=== PATIENT | female | born 1950 | race Caucasian/White ===

== ENCOUNTER → 2016-07-25 | Outpatient (CLI) | payer OTHER ==
[~2016-07-25] MED LIST: ATEN25TA PO; ATOR10TA88 PO; DILT120C68 PO; DYZ PO; RIVA1TAB4 PO; TRIATAB3 PO
[2016-07-25 12:26] LABS: BASO % 0.4 %; BASO ABS # 0.03 K/uL (0-0.2); COMPLETE YES; HEMATOCRIT 40.4 % (37-47); IG% 0.3 %; LYMPH % 29.9 %; LYMPH ABS # 2.15 K/uL (1.2-3.4); MEAN CELL VOLUME 85.2 fL (80-100); MEAN CORPUSCULAR HEMOGLOBIN 28.7 pg (25-34); MEAN CORPUSCULAR HGB CONC 33.7 g/dl (32-36); MEAN PLATELET VOLUME 9.7 fL (7.4-10.4); MONO % 7.4 %; PLATELET COUNT 283 K/uL (130-400); RED BLOOD COUNT 4.74 M/uL (4.2-5.4)
[2016-07-25 12:44] LABS: ALT/SGPT 23 U/L (12-78); BLOOD UREA NITROGEN 21 mg/dl (7-18); BUN/CREATININE RATIO 22.9 (10-20); CALCIUM 9.7 mg/dl (8.5-10.1); CARBON DIOXIDE 30 mmol/L (21-32); CHLORIDE 100 mmol/L (98-107); CREATININE 0.91 mg/dl (0.60-1.20); GLUCOSE 87 mg/dl (70-99); POTASSIUM 3.4 mmol/L (3.5-5.1); SODIUM 138 mmol/L (136-145)
[2016-07-25 12:47] LABS: ALB/GLOB RATIO 1.2 (0.9-2); ALKALINE PHOSPHATASE 95 U/L (45-117); AST/SGOT 17 U/L (15-37)
== END | disposition home or self-care (01) ==
LOC: C.LABBFT 10:50
PROVIDERS: ATTEND Internal Medicine
DX: R10.32 Left lower quadrant pain (principal)

== ENCOUNTER 2016-11-02 23:41 | Emergency (ER) | payer OTHER ==
[~2016-11-02] VITALS: Ht 170.2 cm; Wt 80.1 kg
[~2016-11-02 23:41] MED LIST changes: +ATOR10TA82 PO; -ATOR10TA88 PO; -TRIATAB3 PO
[2016-11-02 23:54] VITALS: BP 154/69; PULSE 55; TEMP 36.7; O2SAT 94; Ht 170.2 cm; Wt 80.1 kg
[2016-11-03] MEDS ORDERED: TRIATAB3 PO (00:43)
--- NOTE | 2016-11-03 00:51 | EMERGENCY ROOM VISIT NOTE ---
History Report prepared by Scribe: Brayan Augustine Under the Supervision of: Dr. Patrick Wong D.O. First contact with patient: 23:59 Chief Complaint: SWELLING TO EXTREMITY Stated Complaint: ARM SWELLING History of Present Illness The patient is a 66 year old female who presents to the Emergency Room with complaints of worsening right arm swelling. She states that she noticed the swelling on her right forearm a few hours ago when she was going to bed. She denies any known trauma. The patient states that the area is sore to the touch. She is on Xarelto. Source of History: patient Onset: a few hours ago Position: arm (right forearm) Quality: other (swelling) Timing: worsening Review of Systems See HPI for pertinent positives and negatives. A total of six systems were reviewed and were otherwise negative. Past Medical & Surgical Medical Problems: (1) Left sided chest pain (2) No Known Active Medical Problems Family History FH: heart disease Social History Smoking Status: Never Smoker Alcohol Use: occasionally Drug Use: none Marital Status: in relationship Occupation Status: employed Current/Historical Medications Scheduled Atenolol (Tenormin), 25 MG PO BID Atorvastatin (Lipitor), 10 MG PO DAILY Diltiazem Hcl Ext Rel (Tiazac), 120 MG PO BID Rivaroxaban (Xarelto), 20 MG PO DAILY Triamterene/Hctz (Triamterene/Hctz 37.5-25MG), 1 TAB PO DAILY Allergies Coded Allergies: Iodinated Diagnostic Agents (Verified Allergy, Severe, HIVES, 11/03/16) Physical Exam Vital Signs Date Time Temp Pulse Resp B/P (MAP) Pulse Ox O2 Delivery O2 Flow Rate FiO2 11/02/16 23:54 36.7 55 18 154/69 94 Room Air Physical Exam GENERAL: Awake, alert, well-appearing, in no distress RUE: Freely movable ecchymotic lesion on the right forearm flexor compartment. NVI distally. No evidence of significant limb edema NEURO: Normal sensorium. No sensory or motor deficits noted. SKIN: No rash or jaundice noted. Medical Decision & Procedures ER Provider Diagnostic Interpretation: Two View Right Forearm X-ray interpreted by me: negative for fracture or mass. ED Course 0002: The patient was evaluated in room B12B. A complete history and physical exam was performed. 0052: I reevaluated the patient. Discussed results and discharge instructions: she verbalized understanding and agreement. The patient is ready for discharge. Medical Decision Differential diagnoses include but are not limited to; hematoma, cyst, and contusion. Patient on my examination is no evidence of DVT patient clearly has a freely mobile hematoma or cystic like structure in the distal right flexor compartment of the forearm. Patient's x-rays negative for fracture or mass as interpreted by me Impression Primary Impression: Hematoma Scribe Attestation The scribe's documentation has been prepared under my direction and personally reviewed by me in its entirety. I confirm that the note above accurately reflects all work, treatment, procedures, and medical decision making performed by me. Departure Information Dispostion Home / Self-Care Referrals Sonny Ford M.D. (PCP) Patient Instructions ED Hematoma, My [facility]
--- NOTE | 2016-11-03 07:08 | DIAGNOSTIC IMAGING REPORT ---
RIGHT FOREARM 2 VIEWS ROUTINE CLINICAL HISTORY: Lesion. No known trauma. COMPARISON: None FINDINGS: No acute fracture of the right radius or ulna is identified. There is no right elbow joint effusion. No osseous lesion is present. There is chondrocalcinosis within the TFCC and severe arthritis of the right first carpometacarpal joint. IMPRESSION: No acute fracture of the right radius or ulna. Electronically signed by: Manan Jennings M.D. 11/03/2016 7:06 AM Dictated Date/Time: 11/03/2016 7:04 AM
[2017-03-15] MEDS ORDERED: MISCCAP80 PO (09:18)
== END 2016-11-03 01:04 | disposition home or self-care (01) ==
LOC: C.EDB 23:42
DX: S50.11XA Contusion of right forearm, initial encounter (principal); X58.XXXA Exposure to other specified factors, initial encounter

== ENCOUNTER 2017-02-09 17:32 | Emergency (ER) | payer OTHER ==
[~2017-02-09] VITALS: Ht 170.2 cm; Wt 79.7 kg
[~2017-02-09 17:32] MED LIST changes: -ATOR10TA82 PO; +ATOR10TA88 PO; -DYZ PO; +TRIATAB3 PO
[2017-02-09 17:34] VITALS: TEMP 37.4; Ht 170.2 cm; Wt 79.7 kg
[2017-02-09 17:50] VITALS: O2SAT 98
--- NOTE | 2017-02-09 18:02 | DIAGNOSTIC IMAGING REPORT ---
CHEST ONE VIEW PORTABLE CLINICAL HISTORY: Atypical chest pain COMPARISON STUDY: 07/05/2015 FINDINGS: There are postsurgical changes of a midline sternotomy. The heart remains enlarged. There is stable prominence of central right pulmonary artery. There is no overt failure. There are no pleural effusions.[ IMPRESSION: Stable cardiomegaly. No acute findings. Electronically signed by: Edis Walton M.D. 02/09/2017 6:01 PM Dictated Date/Time: 02/09/2017 6:00 PM
[2017-02-09 18:05] LABS: BASO % 0.3 %; BASO ABS # 0.03 K/uL (0-0.2); COMPLETE YES; EOS % 2.2 %; HEMATOCRIT 39.6 % (37-47); IG% 0.3 %; LYMPH ABS # 2.07 K/uL (1.2-3.4); MEAN CORPUSCULAR HGB CONC 33.3 g/dl (32-36); MEAN PLATELET VOLUME 9.2 fL (7.4-10.4); MONO % 14.6 %; NEUT % 63.6 %; PLATELET COUNT 289 K/uL (130-400); RED BLOOD COUNT 4.55 M/uL (4.2-5.4); WHITE BLOOD COUNT 10.87 K/uL (4.8-10.8)
[2017-02-09 18:19] LABS: ALT/SGPT 23 U/L (12-78); AST/SGOT 9 U/L (15-37); BLOOD UREA NITROGEN 22 mg/dl (7-18); BUN/CREATININE RATIO 18.5 (10-20); CARBON DIOXIDE 29 mmol/L (21-32); CHLORIDE 105 mmol/L (98-107); GLUCOSE 105 mg/dl (70-99); POTASSIUM 3.8 mmol/L (3.5-5.1); SODIUM 139 mmol/L (136-145)
[2017-02-09 18:21] LABS: INR 1.1 (0.9-1.1); PARTIAL THROMBOPLASTIN RATIO 1.3; PROTHROMBIN TIME (PATIENT) 12.1 SECONDS (9.0-12.0)
[2017-02-09 18:24] LABS: ALKALINE PHOSPHATASE 92 U/L (45-117)
[2017-02-09 20:30] VITALS: BP 111/62; PULSE 59; O2SAT 96
--- NOTE | 2017-02-09 23:47 | EMERGENCY ROOM VISIT NOTE ---
History Report prepared by Neyda: Krystal Moran Under the Supervision of: Dr. Dashawn Camacho M.D. First contact with patient: 17:44 Chief Complaint: CHEST PAIN Stated Complaint: CHEST PAIN History of Present Illness The patient is a 66 year old female who presents to the Emergency Room with complaints of intermittent chest pain that began around 1400 today. She states she was sitting down when the pain started and describes it as feeling like a "deep twinge", rating her discomfort as a 7/10. Her pain is worse with ambulation and she states it lasts briefly, for about 5 seconds. The patient denies any recent travel or surgeries. She notes she has experienced similar pain in the past, with the last episode being in 2016. The patient does take daily Xarelto and admits to a history of atrial fibrillation and has undergone mitral and tricuspid valve repairs. She denies any current pain here in the ED. She admits she has been getting over cold symptoms recently and has also been more fatigued than normal. Pt denies LOC, headache, fevers, chills, diaphoresis , visual changes, neck pain, breathing difficulties, nausea, vomiting, abdominal pain, back pain, melena, hematochezia, urinary symptoms, numbness, weakness, lymphadenopathy, rash, or other complaints. Source of History: patient Onset: 1400 today Position: chest Symptom Intensity: 7/10 Quality: other ("deep twinge") Timing: intermittent Modifying Factors (Worsening): movement (ambulation) Associated Symptoms: + fatigue Review of Systems See HPI for pertinent positives and negatives. A total of ten systems were reviewed and were otherwise negative. Past Medical & Surgical Medical Problems: (1) Anticoagulant long-term use (2) Atrial fibrillation (3) Left sided chest pain Surgical Problems: (1) S/P appendectomy (2) S/P MVR (mitral valve repair) (3) S/P TVR (tricuspid valve repair) Family History FH: heart disease Social History Smoking Status: Never Smoker Alcohol Use: occasionally Drug Use: none Marital Status: in relationship Housing Status: lives with family Occupation Status: employed Current/Historical Medications Scheduled Atenolol (Tenormin), 25 MG PO BID Atorvastatin (Lipitor), 10 MG PO DAILY Diltiazem Hcl Ext Rel (Tiazac), 120 MG PO BID Rivaroxaban (Xarelto), 20 MG PO DAILY Triamterene/Hctz (Triamterene/Hctz 37.5-25MG), 1 TAB PO DAILY Allergies Coded Allergies: Iodinated Diagnostic Agents (Verified Allergy, Severe, HIVES, 02/09/17) Physical Exam Vital Signs Date Time Temp Pulse Resp B/P (MAP) Pulse Ox O2 Delivery O2 Flow Rate FiO2 02/09/17 20:30 59 18 111/62 96 Room Air 02/09/17 19:48 57 18 111/47 93 Room Air 02/09/17 19:33 52 02/09/17 18:48 52 18 94/47 93 Room Air 02/09/17 17:50 98 Room Air 02/09/17 17:50 98 Room Air 02/09/17 17:34 37.4 58 20 136/60 95 Room Air Physical Exam GENERAL: Awake, alert, well-appearing, in no distress HENT: Normocephalic, atraumatic. Oropharynx unremarkable. EYES: Normal conjunctiva. Sclera non-icteric. NECK: Supple. No nuchal rigidity. FROM. No JVD. RESPIRATORY: Clear to auscultation. CARDIAC: Regular rate, irregular rhythm. Extremities warm and well perfused. Pulses equal. ABDOMEN: Soft, non-distended. No tenderness to palpation. No rebound or guarding. No masses. RECTAL: Deferred. MUSCULOSKELETAL: Chest examination reveals no tenderness. The back is symmetrical on inspection without obvious abnormality. There is no CVA tenderness to palpation. No joint edema. LOWER EXTREMITIES: Calves are equal size bilaterally and non-tender. No edema. No discoloration. NEURO: Normal sensorium. No sensory or motor deficits noted. SKIN: No rash or jaundice noted. Medical Decision & Procedures ER Provider Diagnostic Interpretation: Radiology results as stated below per my review and radiologist interpretation: CHEST ONE VIEW PORTABLE CLINICAL HISTORY: Atypical chest pain COMPARISON STUDY: 07/05/2015 FINDINGS: There are postsurgical changes of a midline sternotomy. The heart remains enlarged. There is stable prominence of central right pulmonary artery. There is no overt failure. There are no pleural effusions. IMPRESSION: Stable cardiomegaly. No acute findings. Electronically signed by: Edis Walton M.D. 02/09/2017 6:01 PM Laboratory Results 02/09/17 17:50 Red Blood Count 4.55, Mean Corpuscular Volume 87.0, Mean Corpuscular Hemoglobin 29.0, Mean Corpuscular Hemoglobin Concent 33.3, Mean Platelet Volume 9.2, Neutrophils (%) (Auto) 63.6, Lymphocytes (%) (Auto) 19.0, Monocytes (%) (Auto) 14.6, Eosinophils (%) (Auto) 2.2, Basophils (%) (Auto) 0.3, Neutrophils # (Auto ) 6.91, Lymphocytes # (Auto) 2.07, Monocytes # (Auto) 1.59, Eosinophils # (Auto ) 0.24, Basophils # (Auto) 0.03 02/09/17 17:50 Test 02/09/17 17:50 02/09/17 19:25 White Blood Count 10.87 K/uL (4.8-10.8) Red Blood Count 4.55 M/uL (4.2-5.4) Hemoglobin 13.2 g/dL (12.0-16.0) Hematocrit 39.6 % (37-47) Mean Corpuscular Volume 87.0 fL (80-100) Mean Corpuscular Hemoglobin 29.0 pg (25-34) Mean Corpuscular Hemoglobin Concent 33.3 g/dl (32-36) Platelet Count 289 K/uL (130-400) Mean Platelet Volume 9.2 fL (7.4-10.4) Neutrophils (%) (Auto) 63.6 % Lymphocytes (%) (Auto) 19.0 % Monocytes (%) (Auto) 14.6 % Eosinophils (%) (Auto) 2.2 % Basophils (%) (Auto) 0.3 % Neutrophils # (Auto) 6.91 K/uL (1.4-6.5) Lymphocytes # (Auto) 2.07 K/uL (1.2-3.4) Monocytes # (Auto) 1.59 K/uL (0.11-0.59) Eosinophils # (Auto) 0.24 K/uL (0-0.5) Basophils # (Auto) 0.03 K/uL (0-0.2) RDW Standard Deviation 43.9 fL (36.4-46.3) RDW Coefficient of Variation 13.9 % (11.5-14.5) Immature Granulocyte % (Auto) 0.3 % Immature Granulocyte # (Auto) 0.03 K/uL (0.00-0.02) Prothrombin Time 12.1 SECONDS (9.0-12.0) Prothromb Time International Ratio 1.1 (0.9-1.1) Activated Partial Thromboplast Time 33.1 SECONDS (21.0-31.0) Partial Thromboplastin Ratio 1.3 Anion Gap 5.0 mmol/L (3-11) Est Creatinine Clear Calc Drug Dose 50.8 ml/min Estimated GFR () 54.9 Estimated GFR (Non- 47.4 BUN/Creatinine Ratio 18.5 (10-20) Calcium Level 9.0 mg/dl (8.5-10.1) Total Bilirubin 0.8 mg/dl (0.2-1) Direct Bilirubin 0.2 mg/dl (0-0.2) Aspartate Amino Transf (AST/SGOT) 9 U/L (15-37) Alanine Aminotransferase (ALT/SGPT) 23 U/L (12-78) Alkaline Phosphatase 92 U/L (45-117) Total Creatine Kinase 54 U/L (26-192) Creatine Kinase MB < 0.5 ng/ml (0.5-3.6) Creatine Kinase MB Ratio (0-3.0) Total Protein 7.4 gm/dl (6.4-8.2) Albumin 4.1 gm/dl (3.4-5.0) Lipase 132 U/L (73-393) Troponin I < 0.015 ng/ml (0-0.045) Laboratory results reviewed by me ECG Indication: chest pain Rate (beats per minute): 69 Rhythm: atrial fibrillation Findings: T-wave inversion (anterioseptally), no acute ischemic change, no ectopy Change: 2nd EKG: Atrial fibrillation rate of 48, slow ventricular response, no ischemia , no ectopy. When compared to previous EKG, there is no change. ED Course 1753: The patient was evaluated in room B12. A complete history and physical exam was performed. 1842: I reevaluated the patient. She had another twinge of pain and underwent a repeat EKG. 2020: I reevaluated the patient. Her second troponin is negative. She is feeling well and will follow up with cardiology on Sunday. I discussed her discharge instructions and she verbalized complete understanding and agreement. Medical Decision Triage Nursing notes reviewed. The patient's presentation and history were concerning for fleeting chest pain and recent URI symptoms. Etiologies such as pleurisy, costochondritis, pneumonia, pneumothorax, musculoskeletal, infections, cardiac ischemia, aortic dissection, pulmonary embolism, gastrointestinal, as well as others were entertained. The patient was evaluated. Clinically she was doing well. An ECG was performed and was nonischemic. Is unchanged from prior. Chest x-ray was unremarkable. No pneumonia. No pneumothorax. Her CBC showed a very minimal elevation of white blood cell count. She has noted URI symptoms for several days but is improving on her own account. The patient's chemistry panel, LFTs, lipase, and cardiac markers were negative. A repeat troponin was performed and there is no change. The patient had repeat ECG done and had no change. She noted a few fleeting episodes of pain while in the emergency department. These lasted a couple of seconds at most. They were while resting in bed. The patient describes this as similar to what brought her to the Emergency Room. They do not sound consistent with a cardiac etiology. The patient is on anticoagulation which would make pulmonary embolism much less likely. She does not have pain is reproducible with a deep breath. This may be related to pleurisy or chest wall issue as she has had URI symptoms. There is no evidence of pneumonia. I discussed conservative management with her. She felt very comfortable with this plan. Risks and benefits discussed. I gave my usual and customary discussion regarding this issue. She will follow-up with her hat brim curler on Sunday. If she worsens in any way or develops any additional symptoms she will come back to the Emergency Room for reevaluation. I gave my usual and customary discussion regarding this issue. Medication Reconcilliation Current Medication List: was personally reviewed by me Blood Pressure Screening Patient's blood pressure: Normal blood pressure Blood pressure disposition: Did not require urgent referral Impression Primary Impression: Left sided chest pain Scribe Attestation The scribe's documentation has been prepared under my direction and personally reviewed by me in its entirety. I confirm that the note above accurately reflects all work, treatment, procedures, and medical decision making performed by me. Departure Information Dispostion Home / Self-Care Referrals Sonny Ford M.D. (PCP) Patient Instructions My [facility] Additional Instructions CHEST PAIN INSTRUCTIONS: Acetaminophen(Tylenol) may be used for fever or pain. Use 1000mg every six hours as needed. Avoid using more than 4000mg in a 24 hour period. Rest and drink plenty of fluids as tolerated. Continue current medications. Avoid strenuous activities and anything that worsens your pain. Resume normal activities once your symptoms resolve. Return to the ER immediately for worsening or persistent chest pain, abdominal pain, vomiting, fevers, chest pains, difficulty breathing, worsening of your condition, or as needed. Follow up with your hat brim curler Sunday for a recheck of your current condition.
== END 2017-02-09 20:35 | disposition home or self-care (01) ==
LOC: C.EDB 17:33
DX: R07.9 Chest pain, unspecified (principal); I48.91 Unspecified atrial fibrillation; Z79.01 Long term (current) use of anticoagulants; Z79.899 Other long term (current) drug therapy

== ENCOUNTER → 2017-05-02 | Outpatient (CLI) | payer OTHER ==
[~2017-05-02] MED LIST changes: +ATOR10TA82 PO; -ATOR10TA88 PO; +MISCCAP80 PO
[2017-05-02 19:12] LABS: LYME DISEASE AB IGG NEG (NEG); LYME DISEASE AB IGM NEG (NEG)
== END | disposition home or self-care (01) ==
LOC: C.LABBFT 13:31
PROVIDERS: ATTEND Physician Assistant Medical
DX: L03.90 Cellulitis, unspecified (principal); L72.9 Follicular cyst of the skin and subcutaneous tissue, unspecified

== ENCOUNTER → 2017-05-02 | Outpatient (CLI) | payer OTHER | END | disposition home or self-care (01) | LOC: C.PAPS 17:51 | PROVIDERS: ATTEND Obstetrics & Gynecology | DX: Z01.419 Encounter for gynecological examination (general) (routine) without abnormal findings (principal) ==

== ENCOUNTER → 2017-05-16 | Outpatient (CLI) | payer OTHER ==
--- NOTE | 2017-05-16 10:33 | DIAGNOSTIC IMAGING REPORT ---
RIGHT LOWER LEG ULTRASOUND CLINICAL HISTORY: L72.9 Infected cyst of skin right leg/ lateral aspec COMPARISON STUDY: None. FINDINGS: Real-time sonographic imaging of the right lateral lower leg was performed with inbound sales representative images submitted. Ill-defined area of edema within the subcutaneous fat. No loculated fluid collections identified. No masses. IMPRESSION: Ill-defined area of subcutaneous edema within the right lateral lower leg. No loculated fluid collections to suggest an abscess. Electronically signed by: Yoan Maloney M.D. 05/16/2017 10:31 AM Dictated Date/Time: 05/16/2017 10:22 AM
== END | disposition home or self-care (01) ==
LOC: C.ULTR 09:39
PROVIDERS: ATTEND Internal Medicine
DX: L72.9 Follicular cyst of the skin and subcutaneous tissue, unspecified (principal); R60.0 Localized edema

== ENCOUNTER → 2017-08-08 | Day surgery (SDC) | payer OTHER ==
[2017-03-15 09:19] VITALS: BMI 26.0
[2017-07-27 08:21] VITALS: Ht 170.2 cm; Wt 77.3 kg
[~2017-08-08] VITALS: Ht 170.2 cm; Wt 77.3 kg
[~2017-08-08] MED LIST changes: +LIDOCAINE HCL 2% 2 ML VIAL (20MG/ML) ONE; +PROPOFOL IV EMULSION 10 MG/ML 20 ML VIAL IV ONE; +SODIUM CHLORIDE 0.9% 500ML 500 ML IV ONE
--- NOTE | 2017-08-08 10:18 | Endo History and Physical ---
History & Physical Date of Service: Aug 08, 2017. Chief Complaint: Screening Referring Physician: Dr. Sonny Ford History of Present Illness 67 yo CF who presents for screening colonoscopy. Past Surgical History Hx Cardiac Surgery: Yes (MITRAL AND TRICUSPID VALVE REPAIR, CARDIOVERSION AND MAZE PROCEDURE) Hx Internal Defibrillator: No Hx Pacemaker: No Hx Abdominal Surgery: Yes (APPY, ) Hx of Implantable Prosthesis: No Hx Post-Op Nausea and Vomiting: Yes Hx Cancer Surgery: No Hx Thoracic Surgery: No Hx Orthopedic: No Hx Urinary Tract Surgery: No Family History Colon CA Social History Smoking Status: Never Smoker Hx Substance Use: No Hx Alcohol Use: No Allergies Coded Allergies: Iodinated Diagnostic Agents (Verified Allergy, Severe, HIVES, 07/27/17) Current Medications Reported Home Medications Medications Dose Route/Sig Max Daily Dose Days Date Category Probiotic (Probiotic Product) 1 Cap Cap 1 Cap PO QAM 03/15/17 Reported Triamterene/Hctz 37.5-25MG (Triamterene/HCTZ) 1 Tab Tab 1 Tab PO QAM 11/03/16 Reported Tiazac (Diltiazem HCl) 120 Mg Capcr 120 Mg PO BID 07/05/15 Reported Xarelto (Rivaroxaban) 20 Mg Tab 20 Mg PO QPM 07/05/15 Reported Tenormin (Atenolol) 25 Mg Tab 25 Mg PO BID 07/05/15 Reported Lipitor (Atorvastatin Calcium) 10 Mg Tab 10 Mg PO QAM 11/14/08 Reported Vital Signs Weight (Kilograms): 77.27 Height (Feet): 5 Height (Inches): 7 Date Time Temp Pulse Resp B/P (MAP) Pulse Ox O2 Delivery O2 Flow Rate FiO2 08/08/17 10:05 36.9 67 20 141/89 (106) 98 Room Air Physical Exam General Appearance: WD/WN, no apparent distress Respiratory/Chest: Auscultation: breath sounds normal Cardiovascular: Heart Auscultation: RRR Abdomen: Bowel Sounds: normal Inspection & Palpation: soft, non-distended, no tenderness, guarding & rebound Assessment and Plan Assessment: 67 yo CF who presents for screening colonoscopy. Plan: Proceed with colonoscopy.
--- NOTE | 2017-08-08 11:01 | Discharge Instructions ---
Endoscopy Patient Instructions Date / Procedure(s) Performed Aug 08, 2017. Colonoscopy Allergy Information Coded Allergies: Iodinated Diagnostic Agents (Verified Allergy, Severe, HIVES, 07/27/17) Discharge Date / Findings Aug 08, 2017. Colon polyps Internal hemorrhoids Medication Instructions Stopped Medication(s): Patient was told to not take HCTZ, xarelto, and probiotic today. OK to resume all medications today as prescribed Reported Home Medications Medications Dose Route/Sig Max Daily Dose Days Date Category Probiotic (Probiotic Product) 1 Cap Cap 1 Cap PO QAM 03/15/17 Reported Triamterene/Hctz 37.5-25MG (Triamterene/HCTZ) 1 Tab Tab 1 Tab PO QAM 11/03/16 Reported Tiazac (Diltiazem HCl) 120 Mg Capcr 120 Mg PO BID 07/05/15 Reported Xarelto (Rivaroxaban) 20 Mg Tab 20 Mg PO QPM 07/05/15 Reported Tenormin (Atenolol) 25 Mg Tab 25 Mg PO BID 07/05/15 Reported Lipitor (Atorvastatin Calcium) 10 Mg Tab 10 Mg PO QAM 11/14/08 Reported Provider Instructions Activity Restrictions - No exercising or heavy lifting for 24 hours. - Do not drink alcohol the day of the procedure. - Do not drive a car or operate machinery until the day after the procedure. - Do not make any important decisions or sign important papers in 24 hours after the procedure. Following Day: - Return to full activity which may include returning to work/school. Diet Start your diet with liquids and light foods (jello, soup, juice, toast). Then eat your usual diet if not nauseated. Treatment For Common After Affects For mild abdominal pain, bloating, or excessive gas: - Rest - Eat lightly - Lie on right side Follow-Up Information Follow-up with Dr. Sonny Ford as scheduled Anesthesia Information What You Should Know You have had a procedure that required some medicine to reduce anxiety and discomfort. This treatment is called moderate sedation. After receiving the treatment, you may be sleepy, but you will be able to breathe on your own. The effects of the treatment may last for several hours. Follow these instructions along with Activity/Diet recommendations noted above: * Do NOT do anything where dizziness or clumsiness would be dangerous. * Rest quietly at home today, then you can be up and about tomorrow. * Have a responsible person stay with you the rest of today. * You may have had an I.V. today. If so, you may take the dressing off later today. Recommendations Call your doctor if: * Trouble breathing * Continuous vomiting for more than 24 hours * Temperature above 101 degrees * Severe abdominal pain or bloating * Pain not relieved by pain medicine ordered * There is increased drainage or redness from any incision * A large amount of rectal bleeding greater than 2-3 tablespoons. (If you had a polyp/s removed or have hemorrhoids, a small amount of blood - from the rectum is to be expected.) * You have any unanswered questions or concerns. IN THE EVENT OF A SERIOUS EMERGENCY, GO TO THE NEAREST EMERGENCY ROOM Your discharge instructions were prepared by provider Ricardo Johnson. Patient Instructions Signature Page Doris Keyes Patient (or Guardian) Signature/Date: I have read and understand the instructions given to me by my caregivers. Caregiver/RN/Doctor Signature/Date: The above-named patient and/or guardian has received patient instructions on this date. + Original Patient Signature Page (only) stays with chart. Please make copy for patient.
[2017-08-08 11:32] VITALS: BP 132/71; PULSE 55; O2SAT 99
--- NOTE | 2017-08-08 11:44 | Anesthesiology Progress Note ---
Anesthesia Post Op Note Date & Time Aug 08, 2017 at 11:44 Vital Signs Pain Intensity: 0 Vital Signs Past 12 Hours Date Time Temp Pulse Resp B/P (MAP) Pulse Ox O2 Delivery O2 Flow Rate FiO2 08/08/17 11:32 55 20 132/71 (91) 99 Room Air 08/08/17 11:17 52 20 128/67 (87) 98 Room Air 08/08/17 11:02 56 20 123/68 (86) 98 Room Air 08/08/17 10:05 36.9 67 20 141/89 (106) 98 Room Air Notes Mental Status: alert / awake / arousable, participated in evaluation Pt Amnestic to Procedure: Yes Nausea / Vomiting: adequately controlled Pain: adequately controlled Airway Patency, RR, SpO2: stable & adequate BP & HR: stable & adequate Hydration State: stable & adequate Anesthetic Complications: no major complications apparent
--- NOTE | 2017-08-14 16:18 | GI REPORT ---
Procedure Date: 08/08/2017 10:24 AM Procedure: Colonoscopy Indications: Screening for colorectal malignant neoplasm Medicines: Monitored Anesthesia Care Complications: No immediate complications. Estimated Blood Loss: Estimated blood loss: none. Procedure: Pre-Anesthesia Assessment: - Prior to the procedure, a History and Physical was performed, and patient medications and allergies were reviewed. The patient's tolerance of previous anesthesia was also reviewed. The risks and benefits of the procedure and the sedation options and risks were discussed with the patient. All questions were answered, and informed consent was obtained. Prior Anticoagulants: The patient has taken no previous anticoagulant or antiplatelet agents. ASA Grade Assessment: II - A patient with mild systemic disease. After reviewing the risks and benefits, the patient was deemed in satisfactory condition to undergo the procedure. After I obtained informed consent, the scope was passed under direct vision. Throughout the procedure, the patient's blood pressure, pulse, and oxygen saturations were monitored continuously. The scope was introduced through the anus and advanced to the terminal ileum. The colonoscopy was performed without difficulty. The patient tolerated the procedure well. The quality of the bowel preparation was good. The terminal ileum, ileocecal valve, appendiceal orifice, and rectum were photographed. Findings: The perianal and digital rectal examinations were normal. A 4 mm polyp was found in the ascending colon. The polyp was sessile. The polyp was removed with a cold biopsy forceps. Resection and retrieval were complete. Two sessile polyps were found in the sigmoid colon and transverse colon. The polyps were 4 to 6 mm in size. These polyps were removed with a hot snare. Resection and retrieval were complete. Non-bleeding internal hemorrhoids were found during retroflexion. The hemorrhoids were small. Impression: - One 4 mm polyp in the ascending colon, removed with a cold biopsy forceps. Resected and retrieved. - Two 4 to 6 mm polyps in the sigmoid colon and in the transverse colon, removed with a hot snare. Resected and retrieved. - Non-bleeding internal hemorrhoids. Recommendation: - Resume previous diet. - Continue present medications. - Repeat colonoscopy for surveillance based on pathology results. - Return to primary care physician as previously scheduled. Ricardo Johnson DO 08/08/2017 10:58:13 AM This report has been signed electronically. Note Initiated On: 08/08/2017 10:24 AM I attest to the content of the Intraoperative Record and orders documented therein, exceptions below
== END | disposition home or self-care (01) ==
LOC: C.GI 09:44
PROVIDERS: ATTEND Internal Medicine
DX: Z12.11 Encounter for screening for malignant neoplasm of colon (principal); D12.2 Benign neoplasm of ascending colon; D12.5 Benign neoplasm of sigmoid colon; D12.3 Benign neoplasm of transverse colon; K64.8 Other hemorrhoids; Z80.0 Family history of malignant neoplasm of digestive organs; Z91.041 Radiographic dye allergy status; Z79.899 Other long term (current) drug therapy

== ENCOUNTER → 2017-08-21 | Outpatient (CLI) | payer OTHER ==
[~2017-08-21] MED LIST changes: -LIDOCAINE HCL 2% 2 ML VIAL (20MG/ML) ONE; -PROPOFOL IV EMULSION 10 MG/ML 20 ML VIAL IV ONE; -SODIUM CHLORIDE 0.9% 500ML 500 ML IV ONE
== END | disposition home or self-care (01) ==
LOC: C.MAMM 14:24
PROVIDERS: ATTEND Obstetrics & Gynecology
DX: Z13.820 Encounter for screening for osteoporosis (principal); M85.851 Other specified disorders of bone density and structure, right thigh; M85.852 Other specified disorders of bone density and structure, left thigh

== ENCOUNTER → 2017-09-06 | Outpatient (CLI) | payer OTHER ==
[2017-09-06 12:37] LABS: BASO % 0.5 %; BASO ABS # 0.03 K/uL (0-0.2); EOS % 4.9 %; EOS ABS # 0.32 K/uL (0-0.5); HEMATOCRIT 42.1 % (37-47); IG# 0.02 K/uL (0.00-0.02); LYMPH % 21.9 %; LYMPH ABS # 1.43 K/uL (1.2-3.4); MEAN CELL VOLUME 87.2 fL (80-100); MEAN CORPUSCULAR HGB CONC 33.3 g/dl (32-36); MONO % 9.5 %; MONO ABS # 0.62 K/uL (0.11-0.59); NEUT % 62.9 %; NEUT ABS # 4.11 K/uL (1.4-6.5); PLATELET COUNT 272 K/uL (130-400); RED CELL DISTRIBUTION WIDTH CV 14.2 % (11.5-14.5); RED CELL DISTRIBUTION WIDTH SD 45.7 fL (36.4-46.3); WHITE BLOOD COUNT 6.53 K/uL (4.8-10.8)
[2017-09-06 12:56] LABS: HEMOGLOBIN A1C 5.7 % (4.5-5.6)
[2017-09-06 13:32] LABS: ALBUMIN 4.1 gm/dl (3.4-5.0); ALT/SGPT 23 U/L (12-78); AST/SGOT 14 U/L (15-37); BLOOD UREA NITROGEN 29 mg/dl (7-18); CALCIUM 9.6 mg/dl (8.5-10.1); CARBON DIOXIDE 29 mmol/L (21-32); CREATININE 1.03 mg/dl (0.60-1.20); GLUCOSE 99 mg/dl (70-99); POTASSIUM 3.7 mmol/L (3.5-5.1); SODIUM 136 mmol/L (136-145)
[2017-09-06 13:34] LABS: ALKALINE PHOSPHATASE 99 U/L (45-117); CHOLESTEROL 178 mg/dl (0-200); LDL CHOLESTEROL CALCULATED 89 mg/dl; TOTAL PROTEIN 7.9 gm/dl (6.4-8.2)
== END | disposition home or self-care (01) ==
LOC: C.LABBFT 07:48
PROVIDERS: ATTEND Physician Assistant Medical
DX: R73.01 Impaired fasting glucose (principal); I10 Essential (primary) hypertension; M85.80 Other specified disorders of bone density and structure, unspecified site

== ENCOUNTER → 2018-01-21 | Outpatient (CLI) | payer OTHER | END | disposition home or self-care (01) | LOC: C.LABBFT 13:46 | PROVIDERS: ATTEND Obstetrics & Gynecology | DX: E55.9 Vitamin D deficiency, unspecified (principal) ==

== ENCOUNTER 2024-07-13 00:22 | Observation (INO) ==
[2024-07-13 00:28] VITALS: TEMP 98.2
[2024-07-13 01:06] LABS: Basophils # (auto) 0.05 K/uL (0.00-0.20); Basophils % (auto) 0.7 %; Eosinophils # (auto) 0.28 K/uL (0.00-0.50); Eosinophils % (auto) 3.9 %; Hematocrit (blood only) 39.5 % (37.0-47.0); Immature Granulocytes # (auto) 0.02 K/uL (0.01-0.20); Immature Granulocytes % (auto) 0.3 %; Lymphocytes # (auto) 2.01 K/uL (1.20-3.40); Lymphocytes % (auto) 27.7 %; Mean Corpuscular Hemoglobin 28.4 pg (25.0-34.0); Mean Corpuscular Hgb Conc 32.9 g/dL (32.0-36.0); Mean Corpuscular Volume 86.4 fL (80.0-100.0); Mean Platelet Volume 9.3 fL (9.4-12.4); Monocytes # (auto) 0.68 K/uL (0.11-0.59); Monocytes % (auto) 9.4 %; Neutrophils # (auto) 4.22 K/uL (1.40-6.50); Platelet Count 286 K/uL (130-400); RDW Standard Deviation 44.2 fL (36.4-46.3); Red Blood Count 4.57 M/uL (4.20-5.40); White Blood Count 7.26 K/ul (4.8-10.8)
[2024-07-13 01:12] LABS: INR 1.5 (0.9-1.1); Partial Thromboplastin Ratio 1.4; Partial Thromboplastin Time 39 Seconds (21-31); Prothrombin Time 16.1 Seconds (9.0-12.0)
[2024-07-13 01:21] LABS: Albumin Globulin Ratio 1.9 (0.9-2); Albumin Level 4.6 gm/dl (3.4-5.0); BUN Creatinine Ratio 18.5 (10-20); Bilirubin,Total 0.9 mg/dl (0.2-1.0); Calcium 10.3 mg/dl (8.6-10.3); Globulin 2.4 gm/dl (2.5-4.0); Potassium 3.6 mmol/L (3.5-5.1)
[2024-07-13 01:27] LABS: Troponin I High Sensitivity 14.6 pg/ml (0-14)
--- NOTE | 2024-07-13 01:50 | XRay Report ---
EXAM: XR chest 1V portable CLINICAL HISTORY: Chest pain, nonspecific TECHNIQUE: An X-ray image of the chest is obtained in AP projection. COMPARISON: compared to prior x-ray chest dated 01/20/2023,02/09/2017. FINDINGS: Pulmonary Parenchyma: Lungs are clear bilaterally. No evidence of consolidation, collapse, or focal opacities. No pulmonary nodules are identified. No evidence of pleural effusion or pleural thickening. renetta`s A septal kip. Heart and Mediastinum: Heart size increases with the double density of the right cardiac border, widening the checo of the dilated left atrium. Prominent hilar vascular shadows. No mediastinal widening or masses. No hilar or mediastinal lymphadenopathy. Bony Thorax: The bony thorax appears intact without fractures or deformities. Median sternotomy metallic sutures. Soft Tissues: Soft tissues overlying the chest wall are unremarkable. IMPRESSION: - Cardiomegaly with pulmonary congestion suggests clinical assessment.(unchanged) Electronically signed by Reena Perry 07-13-2024 01:49 AM
--- NOTE | 2024-07-13 02:03 | Emergency Department Note ---
Impression & Plan Exertional chest pain, WRIGHT (dyspnea on exertion), Elevated troponin Admit to the [facility] ED Provider Note NAME: TIMMY MIRANDA AGE: 74 SEX: Female INFORMANT: Patient ED PROVIDER(S): Tran Adams DO CHIEF COMPLAINT: substernal chest pain and shortness of breath PLAN: Disposition: admit to the [facility] MEDICAL DECISION MAKING: this is a 74-year-old female patient has been having intermittent episodes of substernal chest discomfort and shortness of breath since noon. Patient took Rolaids as she thought this may be related to heartburn but got no relief. She then noted some swelling about her lower extremities and had increasing shortness of breath with even light exertion which is unusual for her. Patient has a history of valve replacement from 25 years ago. She is currently followed by Dr. Melo from cardiology. Patient has a mildly elevated troponin at 14.6. And is currently chest pain- free. She remains slightly hypertensive. Other laboratory values revealed no leukocytosis or anemia. Glucose was 108. INR was 1.5. I discussed the case with the [facility] Hospitalist and they will evaluate for further inpatient care. Care/management discussed with: motel manager and [facility] Hospitalist. Triage Nursing notes: reviewed and agree with them. Vital Signs: reviewed and remarkable for Hypertension and bradycardia Additional History obtained from: patient's who is at the bedside Chronic Medical/Social Conditions affecting care: A-fib on Xarelto; previous valve replacements-25 years ago Differential Diagnosis: NSTEMI, STEMI, GERD, aortic dissection Diagnostics, independently interpreted by me: ECG: atrial fibrillation with slow ventricular response at a rate of [address] segment elevation or signs of ischemia. There was no ectopy. Cardiac Monitoring: A-fib at a rate of 50 Imaging studies: portable chest x-ray: Cardiomegaly with pulmonary vascular congestion as per my independent interpretation HPI: 74 year old Female arrives for evaluation of substernal chest pain and shortness of breath. Around noontime today, the patient noted some substernal chest pain that radiated to her left shoulder and arm. Episodes of chest discomfort continued especially when she exerted herself in any way. She also developed some chills. The patient tried taking Rolaids to see if this would reduce or alleviate her discomfort but it did not. She then began to notice some edema surrounding her ankles which was unusual for her. PAST MEDICAL HISTORY: See Below, PAST SURGICAL HISTORY: See Below, SOCIAL HISTORY: See Below, HOME MEDICATIONS: See list ALLERGIES: See list VITALS: See Below PHYSICAL EXAMINATION: HEENT: Head - normocephalic and atraumatic. Pupils are equal, round, and reactive to light. Extraocular eye muscles are intact, and sclera are anicteric. Nose - moist nasal mucosa without discharge. Mouth - moist buccal mucosa. Oropharynx is nonerythematous and there is no tonsillar exudate or edema noted. Neck: Supple; no JVD, nuchal rigidity, cervical lymphadenopathy, or auscultated bruits. Heart: Bradycardic rate and and irregular rhythm rhythm. There is a normal S1 and S2 with no murmurs, clicks, or gallops appreciated. Lungs: Clear to auscultation bilaterally with no wheezes, rales, or rhonchi. Abdomen: Soft, completely nontender, nondistended, with good bowel sounds. There are no palpable pulsatile masses or hepatosplenomegaly. There is no guarding, rigidity, or rebound noted. Extremities: No evidence of cyanosis, clubbing, or edema. There are easily palpable peripheral pulses. Skin: warm and dry with good turgor and no rashes. Emergency Department course: Patient was evaluated in room C-8. A complete history and physical was performed. An order was placed for continuous cardiac monitoring. The patient was in atrial fibrillation with a slow ventricular response at a rate of 50. Laboratory studies were drawn as above. The patient remained hemodynamically stable. She remained chest pain-free. A portable chest x-ray was performed. I discussed the case with the [facility] Hospitalist and they will evaluate for further inpatient care. Past Med/Surg History Problem List (Updated 07/13/24 @ 16:42 by Tran Adams DO) Elevated troponin (Acute) WRIGHT (dyspnea on exertion) (Acute) Exertional chest pain (Acute) Hypokalemia Chest pain KYRIE (stress urinary incontinence, female) TMJ dysfunction Status post Maze operation for atrial fibrillation (Chronic) Status post mitral valve annuloplasty (Chronic) History of colon polyps Atrial fibrillation (Chronic) Mitral valve disorder Vitamin D deficiency (Acute) Tubular adenoma of colon (Acute) Hypertension (Chronic) Medicare annual wellness visit, subsequent Rectal bleeding Anticoagulant long-term use (Chronic) Osteopenia (Acute) Hypercholesterolemia Medical History Internal hemorrhoids Acid reflux History of COVID-19 Nausea and vomiting after administration of anesthetic agent History of cardioversion Hypertension Atrial fibrillation, permanent Lump of breast, right Surgical History H/O oral surgery H/O wisdom tooth extraction History of dilatation and curettage History of cardiac cath H/O maze procedure S/P colonoscopy (~08/08/17) H/O section S/P TVR (tricuspid valve repair) S/P MVR (mitral valve repair) S/P appendectomy Family History Father Myocardial infarction Hypertension Brother Cancer Aunt Osteoporosis Paternal Denies family history of Ovarian cancer Prostate cancer Breast cancer Colorectal cancer Social History (Updated 06/23/24 @ 10:02 by STACEY Ordaz) Smoking Status: Never smoker Second Hand Exposure: No; Do You Dip or Chew Tobacco: No; Tobacco Cessation Education Requested by Patient: No Hx Alcohol Use: No Hx Substance Use: No Preferred Language: Peruvian Communication Ability: Effective Visual Impairment: No Limitations Hearing Ability: Normal Milk Pasteurizer Required: No Beliefs That Will Affect Care: None marital status: Current Living Situation: Spouse current occupational status: retired current occupation: teacher How many Children do You have: 1 Other Information That Helps Us Care for You: No Feels Safe at Home: Yes Safety Concerns: Feels Safe At This Time Childhood Exposure to Second-Hand Smoke: Yes (father) Diet: regular caffeine: Yes (decaf tea) during the past year weight has: remained stable Dental Care, Regularly: Yes Physical Activity Frequency: Daily Seatbelt Use: always Sunscreen Use: Yes Assistive Devices: Denture - Upper and Glasses Allergies Allergies Allergy/AdvReac Type Severity Reaction Status Date / Time Iodinated Contrast Media Allergy Severe HIVES Verified 06/03/24 10:49 Home Meds Home Medications Medication Instructions Recorded Confirmed calcium 600 mg (as 1 tab PO QAM 02/20/22 07/13/24 carbonate)-vitamin D3 5 mcg (200 unit) tablet Previous Rx's Medication Instructions Recorded atenolol 25 mg tablet 25 mg PO DAILY #90 tabs 09/11/23 atorvastatin 20 mg tablet 20 mg PO DAILY #90 tabs 09/11/23 rivaroxaban 20 mg tablet 20 mg PO QPM #90 tabs 11/20/23 triamterene 37.5 1 cap PO QAM #90 caps 12/25/23 mg-hydrochlorothiazide 25 mg capsule diltiazem HCl 120 mg capsule,24 120 mg PO BID 90 days #180 caps 01/04/24 hr,extended release estradiol 0.01% (0.1 mg/gram) 1 g vaginal .COMPLEX #42.5 grams 04/15/24 vaginal cream Results & Data (ED) Vital Signs Vital Signs - 24 hr 07/13/24 00:26 07/13/24 00:55 07/13/24 00:55 Temperature 36.8 C Temperature Source Temporal Artery Scan Pulse Rate 56 L Pulse Rate [Apical] 40 L Pulse Rate from SpO2 Sensor Pulse Rhythm Regular Pulse Rhythm [Apical] Irregular Pulse Strength Normal Respiratory Rate 20 21 Respiratory Effort / Characteristics Non-Labored Spontaneous Non-Labored Respiratory Depth Normal Normal Respiratory Pattern Regular Blood Pressure 177/73 H Blood Pressure [Right Arm] 155/58 H Blood Pressure Mean 107 Blood Pressure Mean [Right Arm] 90 Blood Pressure Position Sitting Pulse Oximetry 96 96 95 Oxygen Delivery Method Room Air Room Air Room Air Sepsis Recent Fever Within 48 Hours No Sepsis New/Unexplained Change in Mental Status No Sepsis Action Taken by Nursing No Action Required 07/13/24 00:55 07/13/24 00:56 07/13/24 01:00 Temperature Temperature Source Pulse Rate 49 L Pulse Rate [Apical] Pulse Rate from SpO2 Sensor Pulse Rhythm Pulse Rhythm [Apical] Pulse Strength Respiratory Rate Respiratory Effort / Characteristics Respiratory Depth Respiratory Pattern Blood Pressure 155/58 H 140/74 Blood Pressure [Right Arm] Blood Pressure Mean 106 98 Blood Pressure Mean [Right Arm] Blood Pressure Position Pulse Oximetry Oxygen Delivery Method Sepsis Recent Fever Within 48 Hours Sepsis New/Unexplained Change in Mental Status Sepsis Action Taken by Nursing 07/13/24 01:00 07/13/24 01:06 07/13/24 01:24 Temperature Temperature Source Pulse Rate 48 L 45 L Pulse Rate [Apical] Pulse Rate from SpO2 Sensor 49 L 44 L Pulse Rhythm Pulse Rhythm [Apical] Pulse Strength Respiratory Rate 15 12 Respiratory Effort / Characteristics Respiratory Depth Respiratory Pattern Blood Pressure 140/74 Blood Pressure [Right Arm] Blood Pressure Mean 98 Blood Pressure Mean [Right Arm] Blood Pressure Position Pulse Oximetry 94 94 Oxygen Delivery Method Sepsis Recent Fever Within 48 Hours Sepsis New/Unexplained Change in Mental Status Sepsis Action Taken by Nursing 07/13/24 01:30 07/13/24 01:30 07/13/24 01:33 Temperature Temperature Source Pulse Rate 44 L Pulse Rate [Apical] Pulse Rate from SpO2 Sensor 44 L Pulse Rhythm Pulse Rhythm [Apical] Pulse Strength Respiratory Rate 18 Respiratory Effort / Characteristics Respiratory Depth Respiratory Pattern Blood Pressure 147/73 H 147/73 H Blood Pressure [Right Arm] Blood Pressure Mean 119 119 Blood Pressure Mean [Right Arm] Blood Pressure Position Pulse Oximetry 94 Oxygen Delivery Method Sepsis Recent Fever Within 48 Hours Sepsis New/Unexplained Change in Mental Status Sepsis Action Taken by Nursing 07/13/24 01:59 07/13/24 02:00 07/13/24 02:01 Temperature Temperature Source Pulse Rate 50 L Pulse Rate [Apical] 50 L Pulse Rate from SpO2 Sensor 47 L Pulse Rhythm Pulse Rhythm [Apical] Pulse Strength Respiratory Rate 20 19 Respiratory Effort / Characteristics Non-Labored Respiratory Depth Normal Respiratory Pattern Blood Pressure 153/65 H Blood Pressure [Right Arm] 147/73 H Blood Pressure Mean 72 Blood Pressure Mean [Right Arm] 97 Blood Pressure Position Pulse Oximetry 93 94 Oxygen Delivery Method Room Air Sepsis Recent Fever Within 48 Hours Sepsis New/Unexplained Change in Mental Status Sepsis Action Taken by Nursing 07/13/24 02:12 Temperature Temperature Source Pulse Rate 56 L Pulse Rate [Apical] Pulse Rate from SpO2 Sensor Pulse Rhythm Pulse Rhythm [Apical] Pulse Strength Respiratory Rate 15 Respiratory Effort / Characteristics Respiratory Depth Respiratory Pattern Blood Pressure Blood Pressure [Right Arm] Blood Pressure Mean Blood Pressure Mean [Right Arm] Blood Pressure Position Pulse Oximetry Oxygen Delivery Method Sepsis Recent Fever Within 48 Hours Sepsis New/Unexplained Change in Mental Status Sepsis Action Taken by Nursing Laboratory Data 07/13/24 08:03 07/13/24 08:03 Lab Results 07/13/24 Range/Units 00:40 WBC 7.26 (4.8-10.8) K/ul RBC 4.57 (4.20-5.40) M/uL Hgb 13.0 (12.0-16.0) g/dl Hct 39.5 (37.0-47.0) % MCV 86.4 (80.0-100.0) fL MCH 28.4 (25.0-34.0) pg MCHC 32.9 (32.0-36.0) g/dL RDW Std Deviation 44.2 (36.4-46.3) fL RDW Coeff of Constantino 14.0 (11.5-14.5) % Plt Count 286 (130-400) K/uL MPV 9.3 L (9.4-12.4) fL Immature Gran % (Auto) 0.3 % Neut % (Auto) 58.0 % Lymph % (Auto) 27.7 % [place] % (Auto) 9.4 % Eos % (Auto) 3.9 % Baso % (Auto) 0.7 % Neut # (Auto) 4.22 (1.40-6.50) K/uL Lymph # (Auto) 2.01 (1.20-3.40) K/uL [place] # (Auto) 0.68 H (0.11-0.59) K/uL Eos # (Auto) 0.28 (0.00-0.50) K/uL Baso # (Auto) 0.05 (0.00-0.20) K/uL Immature Gran # (Auto) 0.02 (0.01-0.20) K/uL PT 16.1 H (9.0-12.0) Seconds INR 1.5 H (0.9-1.1) APTT 39 H (21-31) Seconds PTT Ratio 1.4 Sodium 140 (136-145) mmol/L Potassium 3.6 (3.5-5.1) mmol/L Chloride 102 (98-107) mmol/L Carbon Dioxide 31 (21-32) mmol/L Anion Gap 7 (3-11) BUN 17 (6-23) mg/dl Creatinine 0.92 (0.6-1.2) mg/dl Est Cr Clr Drug Dosing 53.0 ml/min eGFR 65.75 BUN/Creatinine Ratio 18.5 (10-20) Glucose 108 H (70-99(Fasting)) mg/dl Calcium 10.3 (8.6-10.3) mg/dl Total Bilirubin 0.9 (0.2-1.0) mg/dl AST 17 (13-39) U/L ALT 16 (7-52) U/L Alkaline Phosphatase 77 (34-104) U/L Troponin I High Sens 14.6 H (0-14) pg/ml Total Protein 7.0 (6.0-8.3) gm/dl Albumin 4.6 (3.4-5.0) gm/dl Globulin 2.4 L (2.5-4.0) gm/dl Albumin/Globulin Ratio 1.9 (0.9-2) Administered Medications Atenolol (Atenolol 25 Mg Tablet) 25 mg PO DAILY RACHID Stop: 08/12/24 08:59 Last Admin: 07/13/24 09:48 Dose: 25 mg Documented By: SARAH Atorvastatin Calcium (Atorvastatin 20 Mg Tab) 20 mg PO DAILY RACHID Stop: 08/12/24 08:59 Last Admin: 07/13/24 09:48 Dose: 20 mg Documented By: SARAH Calcium/Vitamin D (Calcium 600mg + Vit D 400 Iu Tab) 1 tab PO QAM [facility] Stop: 08/12/24 08:59 Last Admin: 07/13/24 09:48 Dose: 1 tab Documented By: SARAH Diltiazem HCl (Diltiazem Hcl 120 Mg Capcr) 120 mg PO BID [facility] Stop: 08/12/24 08:59 Last Admin: 07/13/24 09:46 Dose: 120 mg Documented By: SARAH Miscellaneous (Estradiol 0.01 % Crm: Order Awaiting Action) 1 each N/A QS [facility] Stop: 08/12/24 07:59 Last Admin: 07/13/24 13:58 Dose: Not Given Documented By: DIONISIO Triamterene/Hydrochlorothiazide (Triamterene/Hctz 37.5/25mg Tab) 1 tab PO QAM [facility] Stop: 08/12/24 10:44 Last Admin: 07/13/24 12:28 Dose: 1 tab Documented By: SARAH Discontinued Medications Magnesium Sulfate/Dextrose (Magnesium Sulfate / D5w) 1 gm in 100 mls @ 50 mls/hr IV Q2H [facility] Stop: 07/13/24 08:44 Last Infusion: 07/13/24 10:30 Dose: Infused Documented By: Admin: 07/13/24 08:12 Dose: 50 mls/hr Documented By: Infusion: 07/13/24 08:10 Dose: Infused Documented By: Admin: 07/13/24 05:33 Dose: 50 mls/hr Documented By: CARLO Potassium Chloride (Potassium Chloride Crtab 20 Meq Tabcr) 40 meq PO NOW STA Stop: 07/13/24 02:14 Last Admin: 07/13/24 03:50 Dose: 40 meq Documented By: CARLO Imaging Data Radiologist's Impression: Chest X-Ray 07/13/24 00:31 EXAM: XR chest 1V portable CLINICAL HISTORY: Chest pain, nonspecific TECHNIQUE: An X-ray image of the chest is obtained in AP projection. COMPARISON: compared to prior x-ray chest dated 01/20/2023,02/09/2017. FINDINGS: Pulmonary Parenchyma: Lungs are clear bilaterally. No evidence of consolidation, collapse, or focal opacities. No pulmonary nodules are identified. No evidence of pleural effusion or pleural thickening. renetta`s A septal kip. Heart and Mediastinum: Heart size increases with the double density of the right cardiac border, widening the checo of the dilated left atrium. Prominent hilar vascular shadows. No mediastinal widening or masses. No hilar or mediastinal lymphadenopathy. Bony Thorax: The bony thorax appears intact without fractures or deformities. Median sternotomy metallic sutures. Soft Tissues: Soft tissues overlying the chest wall are unremarkable. IMPRESSION: - Cardiomegaly with pulmonary congestion suggests clinical assessment.(unchanged) Electronically signed by Reena Perry 07-13-2024 01:49 AM Discharge Plan Visit Data Chief Complaint: Chest Pain Stated Complaint: CHEST PAIN,CHILLS,TINGLING ARMS ED Provider: Tran Adams Discharge Problem: Exertional chest pain, WRIGHT (dyspnea on exertion), Elevated troponin Patient Disposition: Admitted As Inpatient Condition: Good Discharge Instructions Interventions: ED Discharge Assessment Last Done: 07/13/24 03:59
--- NOTE | 2024-07-13 02:27 | History & Physical Report ---
Date of Service July 13, 2024 Assessment & Plan (1) Chest pain: (2) Hypokalemia: (3) Atrial fibrillation: Plan Patient is a 74-year-old female with a past medical history of A-fib on Xarelto s/p maze 2027, mitral valve replacement 1991, hypertension, hyperlipidemia, GERD, osteopenia. She presented to the ED due to 12 hours of intermittent stabbing left sided chest pain with episodes lasting approximately a minute. She also endorses dyspnea on exertion when going up her stairs this evening. She has a family history of DC, father at 48 and 68. She is being admitted for chest pain workup including troponin trend and echocardiogram. She is hypokalemic on admission with a potassium of 3.6. #Chest pain currently chest pain free EKG showed A-fib, no ischemic changes TED risk score 1 troponin 14.6; will trend troponin Lipid panel 03/28/2024 WNL; triglycerides 67, total cholesterol 164, LDL 74, HDL 77 A1c in 2022 WNL, no history of DM - However will add A1c to a.m. labs Monitor on telemetry Echocardiogram ordered differential includes but not limited to chest pain secondary to hypokalemia, GERD, ACS #Hypokalemia 2/2 HCTZ use and recent diarrhea/vomiting with norovirus K+ 3.6 on admission Mg ordered; will replete if low 40 mEq p.o. potassium ordered on admission Repeat BMP and Mg with a.m. labs hold triamterene HCTZ #A-fib S/p maze 1999 on Xarelto, atenolol, diltiazem; continue with holding precautions A-fib seen on EKG in ED Chronic stable diagnoses: mitral valve replacementcontinue Xarelto Hyperlipidemiacontinue atorvastatin Hypertensionhold triamterene HCTZ osteopeniacalcium and vitamin D supplement VTE ppx: SCDs, low risk and able to ambulate Diet: heart healthy Dispo: Med/telemetry Anticipate discharge home 07/13 after electrolyte repletion and echocardiogram. Admission and Anticipated Discharge Date Admission Date: 07/13/2024 History of Present Illness Chief Complaint: Chest pain Primary Care Provider: Kira Chisholm MD Patient is a 74-year-old female with a past medical history of A-fib on Xarelto s/p maze 2027, mitral valve replacement 1991, hypertension, hyperlipidemia, GERD, osteopenia. She presented to the ED due to 12 hours of intermittent stabbing left sided chest pain with episodes lasting approximately a minute. She also endorses dyspnea on exertion when going up her stairs this evening. She is being admitted for chest pain workup including troponin trend and echocardiogram. She is hypokalemic on admission with a potassium of 3.6. Patient seen at bedside with her present. She felt like the chest pain may have been due to indigestion that she has a history of. She denies any past history of DC or stent placement. She does have a family history of DC; her father had an DC at 48 and 68. She does not have any history of diabetes or previous VTE. She denies pleuritic chest pain, no calf tenderness; however does endorse bilateral lower extremity edema but feels it it is due to her sitting most of the day today. Regarding her low potassium, patient stated she had norovirus last week and had vomiting and diarrhea for approximately 24 hours along with several days of weakness. She typically has low potassium on blood work. She is on hydrochlorothiazide. She denies fever, chills, nausea, vomiting, dizziness, lightheadedness, abdominal pain. She does not use nicotine products, drink alcohol, or use illicit drugs. She took her home medications last evening. She wishes to be full code. Patient was undergoing treatment for ongoing sinus issues for most of May and completed a course of Augmentin, doxycycline, and eyedrops for pinkeye. The symptoms are now resolved. She does not require that eyedrops anymore. Allergies Allergy/AdvReac Type Severity Reaction Status Date / Time Iodinated Contrast Media Allergy Severe HIVES Verified 06/03/24 10:49 Home Medications Medication Instructions Recorded Confirmed Type calcium 600 mg (as 1 tab PO QAM 02/20/22 07/13/24 History carbonate)-vitamin D3 5 mcg (200 unit) tablet atenolol 25 mg tablet 25 mg PO DAILY #90 tabs 09/11/23 07/13/24 Rx atorvastatin 20 mg tablet 20 mg PO DAILY #90 tabs 09/11/23 07/13/24 Rx rivaroxaban 20 mg tablet 20 mg PO QPM #90 tabs 11/20/23 07/13/24 Rx triamterene 37.5 1 cap PO QAM #90 caps 12/25/23 07/13/24 Rx mg-hydrochlorothiazide 25 mg capsule diltiazem HCl 120 mg capsule,24 120 mg PO BID 90 days #180 caps 01/04/24 07/13/24 Rx hr,extended release estradiol 0.01% (0.1 mg/gram) 1 g vaginal .COMPLEX #42.5 grams 04/15/24 07/13/24 Rx vaginal cream Past Med/Surg History Problem List (Updated 07/13/24 @ 16:42 by Tran dAams DO) Elevated troponin (Acute) WRIGHT (dyspnea on exertion) (Acute) Exertional chest pain (Acute) Hypokalemia Chest pain KYRIE (stress urinary incontinence, female) TMJ dysfunction Status post Maze operation for atrial fibrillation (Chronic) Status post mitral valve annuloplasty (Chronic) History of colon polyps Atrial fibrillation (Chronic) Mitral valve disorder Vitamin D deficiency (Acute) Tubular adenoma of colon (Acute) Hypertension (Chronic) Medicare annual wellness visit, subsequent Rectal bleeding Anticoagulant long-term use (Chronic) Osteopenia (Acute) Hypercholesterolemia Medical History Internal hemorrhoids Acid reflux History of COVID-19 Nausea and vomiting after administration of anesthetic agent History of cardioversion Hypertension Atrial fibrillation, permanent Lump of breast, right Surgical History H/O oral surgery H/O wisdom tooth extraction History of dilatation and curettage History of cardiac cath H/O maze procedure S/P colonoscopy (~08/08/17) H/O section S/P TVR (tricuspid valve repair) S/P MVR (mitral valve repair) S/P appendectomy Family History Father Myocardial infarction Hypertension Brother Cancer Aunt Osteoporosis Paternal Denies family history of Ovarian cancer Prostate cancer Breast cancer Colorectal cancer Social History (Updated 06/23/24 @ 10:02 by STACEY Ordaz) Smoking Status: Never smoker Second Hand Exposure: No; Do You Dip or Chew Tobacco: No; Tobacco Cessation Education Requested by Patient: No Hx Alcohol Use: No Hx Substance Use: No Preferred Language: Cuban Communication Ability: Effective Visual Impairment: No Limitations Hearing Ability: Normal Special Effects Makeup Artist Required: No Beliefs That Will Affect Care: None marital status: Current Living Situation: Spouse current occupational status: retired current occupation: teacher How many Children do You have: 1 Other Information That Helps Us Care for You: No Feels Safe at Home: Yes Safety Concerns: Feels Safe At This Time Childhood Exposure to Second-Hand Smoke: Yes (father) Diet: regular caffeine: Yes (decaf tea) during the past year weight has: remained stable Dental Care, Regularly: Yes Physical Activity Frequency: Daily Seatbelt Use: always Sunscreen Use: Yes Assistive Devices: Denture - Upper and Glasses Review of Systems Review of Systems: See HPI Physical Exam Physical Exam: The patient is awake, alert and oriented 3, well developed and well nourished, normocephalic and atraumatic, in no acute distress. Non-toxic appearing. HEENT- EOMI, mucous membranes moist. Hearing grossly intact. Heart-normal S1 and S2. No murmurs, rubs or gallops. Lungs-clear bilaterally, no respiratory distress, no accessory muscle use. Abdomen-normal bowel sounds and soft. No ascites noted. Non-tender. Extremities- no clubbing, cyanosis, or edema. Rheumatologic-normal range of motion. Psychiatric-normal affect. Results & Data Results & Data Vital Signs (Past 12 Hours) Vital Signs Temp Pulse Pulse Resp BP BP Pulse Ox 07/13/24 01:59 50 L 20 147/73 H 93 07/13/24 00:56 49 L 07/13/24 00:55 40 L 21 155/58 H 95 07/13/24 00:55 96 07/13/24 00:26 36.8 C 56 L 20 177/73 H 96 O2 Del Method 07/13/24 01:59 Room Air 07/13/24 00:56 07/13/24 00:55 Room Air 07/13/24 00:55 Room Air 07/13/24 00:26 Room Air Laboratory Results reviewed CBC, CMP, PT/INR, troponin Diagnostic Findings reviewed CXR Medications Administered EDnone Admissionpotassium chloride 40 mEq p.o. ECG Additional Comments: A-fib with right axis deviation, no T wave inversions or ST changes Rate 54 QTc 455 Code Status & VTE Plan Code Status full code VTE Prophylaxis Plan VTE Prophylaxis will be ordered: Yes Supervising Physician Co-Signing Physician Notes Attending addendum: I have physically seen this patient, have supervised the SAMANTHA's activities, and agree with the H&P unless as otherwise noted. Assessment and Plan: The patient is a 74-year-old female with past medical history including atrial fibrillation on Xarelto, status post maze procedure, mitral valve replacement 1991, hypertension, hyperlipidemia, GERD, and osteopenia. She reports to the emergency department with 12 hours of intermittent stabbing left-sided chest pain of duration approximately 1 minute. She reports dyspnea on exertion when going up stairs this evening. She is referred for evaluation to for [facility]. Chest pain/atrial fibrillation/hypertension/status post maze procedure/mitral valve replacement The patient will be admitted to telemetry for serial cardiac enzymes, serial EKG's, cardiac rhythm monitoring and a 2-D echocardiogram with Dopplers. Initial troponin of 14.6 with follow-up pending Continue Xarelto, atenolol, diltiazem Hold triamterene/HCTZ due to relative hypokalemia Hypokalemia- Relatively low may be contributing to symptoms Hold triamterene/HCTZ For potassium 3.6 give Klor-Con 40 mill equivalents p.o. and recheck laboratories in the a.m. Magnesium pending and will replete if indicated Remaining orders and notations as noted PG Care Time/CCT Total # of Minutes Spent Total Time Spent with Patient: Total time spent is greater than 50% in coordination of care (as documented) at patient's floor/unit and/or counseling patient: Coding Level of Care Code 75842 INT INP/OBS CARE 3/75MIN Diagnoses Chest pain R07.9 Hypokalemia E87.6 Paroxysmal atrial fibrillation I48.0 Atrial fibrillation type: paroxysmal (3) Atrial fibrillation Atrial fibrillation type: paroxysmal Qualified Code(s): I48.0 - Paroxysmal atrial fibrillation
[2024-07-13 03:11] LABS: Magnesium 1.7 mg/dl (1.7-2.4)
[2024-07-13] MEDS: POTASSIUM CHLORIDE CRTAB 20 MEQ TABCR PO STA (03:50)
[2024-07-13] MEDS ORDERED: ONDANSETRON INJ 2 MG/ML 2 ML VIAL IV PRN (03:57)
[2024-07-13] MEDS ORDERED: ACETAMINOPHEN 325 MG TAB PO PRN (03:57)
[2024-07-13 05:13] LABS: Troponin I High Sensitivity 18.8 pg/ml (0-14)
[2024-07-13] MEDS: MAGNESIUM SULFATE / D5W 1 GM/100 ML BAG IV SCH (05:33)
--- NOTE | 2024-07-13 07:18 | Electrocardiogram Report ---
Test Reason : Blood Pressure : */* mmHG Vent. Rate : 54 BPM Atrial Rate : * BPM P-R Int : * ms QRS Dur : 94 ms QT Int : 480 ms P-R-T Axes : * 111 55 degrees QTcB Int : 455 ms Atrial fibrillation with slow ventricular response with premature ventricular or aberrantly conducted complexes Right axis deviation Abnormal ECG When compared with ECG of 20-Jan-2023 07:13, Atrial fibrillation has replaced Junctional rhythm Confirmed by Checo Ambrosio ([id number]) on 07/13/2024 7:18:34 AM Referred By: REFERRED SELF Confirmed By: Checo Ambrosio
[2024-07-13 08:32] LABS: Basophils # (auto) 0.04 K/uL (0.00-0.20); Basophils % (auto) 0.6 %; Eosinophils # (auto) 0.11 K/uL (0.00-0.50); Eosinophils % (auto) 1.6 %; Hematocrit (blood only) 37.3 % (37.0-47.0); Hemoglobin 12.5 g/dl (12.0-16.0); Immature Granulocytes # (auto) 0.02 K/uL (0.01-0.20); Immature Granulocytes % (auto) 0.3 %; Lymphocytes # (auto) 1.36 K/uL (1.20-3.40); Lymphocytes % (auto) 19.3 %; Mean Corpuscular Hemoglobin 28.8 pg (25.0-34.0); Mean Corpuscular Hgb Conc 33.5 g/dL (32.0-36.0); Mean Corpuscular Volume 85.9 fL (80.0-100.0); Mean Platelet Volume 9.5 fL (9.4-12.4); Monocytes # (auto) 0.52 K/uL (0.11-0.59); Monocytes % (auto) 7.4 %; Neutrophils % (auto) 70.8 %; Platelet Count 270 K/uL (130-400); RDW Coefficient of Variation 13.7 % (11.5-14.5); RDW Standard Deviation 43.2 fL (36.4-46.3); Red Blood Count 4.34 M/uL (4.20-5.40); White Blood Count 7.05 K/ul (4.8-10.8)
[2024-07-13 08:44] LABS: BUN Creatinine Ratio 16.9 (10-20); Calcium 9.8 mg/dl (8.6-10.3); Creatinine Clr Calc Pharmacy 58.7 ml/min; Magnesium 2.2 mg/dl (1.7-2.4)
[2024-07-13] MEDS: dilTIAZem HCL 120 MG CAPCR PO SCH (09:46)
[2024-07-13] MEDS: ATENOLOL 25 MG TABLET PO SCH (09:48)
[2024-07-13] MEDS: ATORVASTATIN 20 MG TAB PO SCH (09:48)
[2024-07-13] MEDS: CALCIUM 600MG + VIT D 400 IU TAB PO SCH (09:48)
[2024-07-13 09:58] LABS: Estimated Average Glucose 114 mg/dl; Hemoglobin A1C 5.6 % (4.5-5.6)
--- NOTE | 2024-07-13 11:05 | Cardiology Consultation ---
Date of Consultation July 13, 2024 Assessment & Plan (1) Chest pain: (2) Atrial fibrillation: (3) Mitral valve disorder: Plan 1. Chest pain: Her chest pain is atypical and that it is quite fleeting, described as "sharp" and not exertional. I do not think this represents a cardiac symptom. EKG is normal, biomarkers while technically elevated are not consistent with an acute coronary syndrome. Most likely musculoskeletal based on her description. I do not think she requires an additional cardiac evaluation in this regard. 2. Atrial fibrillation: Permanent. Rare sense of palpitation. Heart rates are on the slower side but appear to have been so for some time. Consideration could be given to reducing atenolol or diltiazem if she continues to have exertional dyspnea. She will continue systemic anticoagulation. Based on her degree of MS, we should consider a switch to warfarin. 3. Bradycardia. Long history of low heart rates. Perhaps an element of chronotropic incompetence. Depending on symptoms, we could reduce/eliminate atenolol and diltiazem. 4. Mitral stenosis. Not documented previously. Probably moderate. Perhaps some higher pulmonary pressures. In the setting of AF guidelines suggest warfarin is the preferred anticoagulant. History of Present Illness Reason for Consultation: Chest pain Requesting Physician: Marcel Attending Physician: Abby Snyder MD History of Present Illness The patient is a 74-year-old woman with a prior history of mitral valve disease status post remote mitral valve repair, atrial fibrillation status post operative maze and tricuspid annuloplasty. She presented to the hospital due to concerns of "not feeling right" and intermittent chest pains. It seems that the patient has had some illnesses over the past 2 months. She was initially treated for sinusitis and later norovirus. She has just now started feeling better but continues to have an element of fatigue. Yesterday she noticed intermittent chest pains that were fairly focal in nature. She describes a certain spot just above the left breast where she would occasionally feel a "sharp" pain lasting approximately 1 minute. This was not associated with any activity, deep inspiration or change in position. It would occur approximately once per hour and then resolved. She was concerned about indigestion and took some antacids without any change. Due to her recent illnesses and "not feeling right" she decided to present to the emergency room for an evaluation. In general she claims to be active. Due to her illnesses during the first part of this year she has been less active than usual. However, normally she will walk regularly for exercise. She does not report any symptoms associated with exercise such as chest pain or dyspnea. She occasionally has some palpitations, but these are rare. She denied dizziness or lightheadedness. Currently feeling well without recurrent chest symptoms over the course of the evening. Allergies Allergy/AdvReac Type Severity Reaction Status Date / Time Iodinated Contrast Media Allergy Severe HIVES Verified 06/03/24 10:49 Home Medications Medication Instructions Recorded Confirmed Type calcium 600 mg (as 1 tab PO QAM 02/20/22 07/13/24 History carbonate)-vitamin D3 5 mcg (200 unit) tablet atenolol 25 mg tablet 25 mg PO DAILY #90 tabs 09/11/23 07/13/24 Rx atorvastatin 20 mg tablet 20 mg PO DAILY #90 tabs 09/11/23 07/13/24 Rx rivaroxaban 20 mg tablet 20 mg PO QPM #90 tabs 11/20/23 07/13/24 Rx triamterene 37.5 1 cap PO QAM #90 caps 12/25/23 07/13/24 Rx mg-hydrochlorothiazide 25 mg capsule diltiazem HCl 120 mg capsule,24 120 mg PO BID 90 days #180 caps 01/04/24 07/13/24 Rx hr,extended release estradiol 0.01% (0.1 mg/gram) 1 g vaginal .COMPLEX #42.5 grams 04/15/24 07/13/24 Rx vaginal cream Patient History Medical History Internal hemorrhoids Acid reflux History of COVID-19 Nausea and vomiting after administration of anesthetic agent History of cardioversion Hypertension Atrial fibrillation, permanent Lump of breast, right Surgical History H/O oral surgery H/O wisdom tooth extraction History of dilatation and curettage History of cardiac cath H/O maze procedure S/P colonoscopy (~08/08/17) H/O section S/P TVR (tricuspid valve repair) S/P MVR (mitral valve repair) S/P appendectomy Family History Father Myocardial infarction Hypertension Brother Cancer Aunt Osteoporosis Paternal Denies family history of Ovarian cancer Prostate cancer Breast cancer Colorectal cancer Social History (Updated 06/23/24 @ 10:02 by STACEY Ordaz) Smoking Status: Never smoker Second Hand Exposure: No; Do You Dip or Chew Tobacco: No; Tobacco Cessation Education Requested by Patient: No Hx Alcohol Use: No Hx Substance Use: No Preferred Language: Yi Communication Ability: Effective Visual Impairment: No Limitations Hearing Ability: Normal Cook Fast Food Required: No Beliefs That Will Affect Care: None marital status: Current Living Situation: Spouse current occupational status: retired current occupation: teacher How many Children do You have: 1 Other Information That Helps Us Care for You: No Feels Safe at Home: Yes Safety Concerns: Feels Safe At This Time Childhood Exposure to Second-Hand Smoke: Yes (father) Diet: regular caffeine: Yes (decaf tea) during the past year weight has: remained stable Dental Care, Regularly: Yes Physical Activity Frequency: Daily Seatbelt Use: always Sunscreen Use: Yes Assistive Devices: Denture - Upper and Glasses Review of Systems Review of Systems: Per HPI. She did notice being more fatigued and winded when ascending the stairs to go to bed last night. Also some mild lower extremity edema which appears to have resolved this morning. Physical Exam Physical Exam: She is alert and oriented x3. Mood affect appear normal. She answered all questions appropriately. HEENT: Sclerae are anicteric. Pupils are equal and reactive to light and accommodation. Extraocular movements were intact. Neuro: Cranial nerves intact Lungs: Lungs are clear to auscultation bilaterally. There are no rales wheezes or rhonchi. She has normal respiratory effort without use of accessory muscles. There is normal pulmonary excursion. Cardiac: The rhythm was irregular. S1 and S2 were normal. Holosystolic murmur. The PMI was not markedly displaced on palpation. Strong contraction on palpation. Extremities: Patient has bilateral radial pulses that are equal in intensity. There is no evidence cyanosis or clubbing. There was no evidence of significant peripheral edema bilaterally. Skin: There are no rashes noted on examination today. Results & Data Vital Signs (Past 12 Hours) Vital Signs Temp Pulse Pulse Resp BP BP Pulse Ox 07/13/24 09:00 50 L 17 167/70 H 96 07/13/24 07:30 47 L 07/13/24 07:00 47 L 17 143/68 H 95 07/13/24 05:42 07/13/24 05:42 62 20 153/69 H 95 07/13/24 05:30 153/69 H 07/13/24 05:30 153/69 H 07/13/24 05:27 47 L 16 94 07/13/24 05:24 47 L 14 93 07/13/24 05:00 135/52 L 07/13/24 04:54 43 L 22 91 07/13/24 04:30 146/66 H 07/13/24 04:30 44 L 13 95 07/13/24 04:06 48 L 15 94 07/13/24 04:00 151/69 H 07/13/24 03:33 41 L 12 94 07/13/24 03:31 120/38 L 07/13/24 03:28 07/13/24 03:28 46 L 20 137/65 92 07/13/24 03:27 45 L 20 137/65 91 07/13/24 03:24 45 L 13 94 07/13/24 03:03 46 L 20 94 07/13/24 03:00 137/65 07/13/24 03:00 137/65 07/13/24 02:57 46 L 12 95 07/13/24 02:48 52 L 19 95 07/13/24 02:31 154/68 H 07/13/24 02:31 154/68 H 07/13/24 02:31 154/68 H 07/13/24 02:12 56 L 15 07/13/24 02:01 153/65 H 07/13/24 02:00 50 L 19 94 07/13/24 01:59 50 L 20 147/73 H 93 07/13/24 01:33 44 L 18 94 07/13/24 01:30 147/73 H 07/13/24 01:30 147/73 H 07/13/24 01:24 45 L 12 94 07/13/24 01:06 48 L 15 94 07/13/24 01:00 140/74 07/13/24 01:00 140/74 07/13/24 00:56 49 L 07/13/24 00:55 155/58 H 07/13/24 00:55 40 L 21 155/58 H 95 07/13/24 00:55 96 07/13/24 00:26 36.8 C 56 L 20 177/73 H 96 Pulse Ox O2 Del Method O2 Del Method 07/13/24 09:00 Room Air 07/13/24 07:30 07/13/24 07:00 Room Air 07/13/24 05:42 95 Room Air 07/13/24 05:42 Room Air 07/13/24 05:30 07/13/24 05:30 07/13/24 05:27 07/13/24 05:24 07/13/24 05:00 07/13/24 04:54 07/13/24 04:30 07/13/24 04:30 07/13/24 04:06 07/13/24 04:00 07/13/24 03:33 07/13/24 03:31 07/13/24 03:28 Room Air 07/13/24 03:28 Room Air 07/13/24 03:27 Room Air 07/13/24 03:24 07/13/24 03:03 07/13/24 03:00 07/13/24 03:00 07/13/24 02:57 07/13/24 02:48 07/13/24 02:31 07/13/24 02:31 07/13/24 02:31 07/13/24 02:12 07/13/24 02:01 07/13/24 02:00 07/13/24 01:59 Room Air 07/13/24 01:33 07/13/24 01:30 07/13/24 01:30 07/13/24 01:24 07/13/24 01:06 07/13/24 01:00 07/13/24 01:00 07/13/24 00:56 07/13/24 00:55 07/13/24 00:55 Room Air 07/13/24 00:55 Room Air 07/13/24 00:26 Room Air Laboratory Results Abnormal Lab Results 07/13/24 07/13/24 07/13/24 00:40 02:32 08:03 WBC 7.26 7.05 RBC 4.57 4.34 Hgb 13.0 12.5 Hct 39.5 37.3 MCV 86.4 85.9 MCH 28.4 28.8 MCHC 32.9 33.5 RDW Std Deviation 44.2 43.2 RDW Coeff of Constantino 14.0 13.7 Plt Count 286 270 MPV 9.3 L 9.5 Immature Gran % (Auto) 0.3 0.3 Neut % (Auto) 58.0 70.8 Lymph % (Auto) 27.7 19.3 [place] % (Auto) 9.4 7.4 Eos % (Auto) 3.9 1.6 Baso % (Auto) 0.7 0.6 Neut # (Auto) 4.22 5.00 Lymph # (Auto) 2.01 1.36 [place] # (Auto) 0.68 H 0.52 Eos # (Auto) 0.28 0.11 Baso # (Auto) 0.05 0.04 Immature Gran # (Auto) 0.02 0.02 PT 16.1 H INR 1.5 H APTT 39 H PTT Ratio 1.4 Sodium 140 141 Potassium 3.6 4.0 Chloride 102 106 Carbon Dioxide 31 29 Anion Gap 7 6 BUN 17 14 Creatinine 0.92 0.83 Est Cr Clr Drug Dosing 53.0 58.7 eGFR 65.75 74.39 BUN/Creatinine Ratio 18.5 16.9 Glucose 108 H 109 H Estimat Average Glucose 114 Hemoglobin A1c 5.6 Calcium 10.3 9.8 Magnesium 1.7 2.2 Total Bilirubin 0.9 AST 17 ALT 16 Alkaline Phosphatase 77 Troponin I High Sens 14.6 H 18.8 H D 17.7 H Total Protein 7.0 Albumin 4.6 Globulin 2.4 L Albumin/Globulin Ratio 1.9 Diagnostic Findings Chest x-ray read as "cardiomegaly with pulmonary congestion" although the body of the report suggest the lungs are clear. Echocardiogram 07/13/2024: Preserved LV systolic function. Moderate to severe MS PG Care Time/CCT Total # of Minutes Spent Total Time Spent with Patient: Total time spent is greater than 50% in coordination of care (as documented) at patient's floor/unit and/or counseling patient: Coding Level of Care Code 99856 INT INP/OBS CARE 3/75MIN Diagnoses Chest pain R07.9 Paroxysmal atrial fibrillation I48.0 Atrial fibrillation type: paroxysmal Mitral valve disorder I05.9 (2) Atrial fibrillation Atrial fibrillation type: paroxysmal Qualified Code(s): I48.0 - Paroxysmal atrial fibrillation
[2024-07-13] MEDS: TRIAMTERENE/HCTZ 37.5/25MG TAB PO SCH (12:28)
--- NOTE | 2024-07-13 13:03 | XCELERA ---
[id number] \\[email or web address]\[id number]
--- NOTE | 2024-07-13 13:58 | Discharge Summary ---
Discharge Summary Date of Service July 13, 2024 Principal Dx & Hospital Course #1 = Principal Diagnosis (1) Chest pain: (2) Hypokalemia: (3) Atrial fibrillation: Plan #Chest pain/ hx of Mitral valve replacement Patient is a 74-year-old female with a past medical history of A-fib on Xarelto s/p maze 2027, mitral valve replacement 1991, hypertension, hyperlipidemia, GERD, osteopenia. She presented to the ED due to 12 hours of intermittent stabbing left sided chest pain with episodes lasting approximately a minute. She also endorses dyspnea on exertion when going up her stairs this evening. Her chest pain has not recurred since coming to the hospital. She was evaluated by cardiology, no need for additional workup, thought to be musculoskeletal. Troponin peaked at 18. Echocardiogram showed mitral stenosis, which is new. Per my discussion with Dr. Ambrosio, she should likely be switched to Warfarin, but can be deferred to primary regulator tester, she follows Dr. Melo. Patient has been on Warfarin before. Needs cardiology follow up in 1-2 weeks, given instructions to call if she does not hear from their office by Sunday. #A-fib S/p maze 1999. on Xarelto, atenolol, diltiazem Rates 40-50s while inpatient. Consider scaling back on her atenolol or diltiazem. Discussed with patient and no changes made at time of discharge. Hyperlipidemiacontinue atorvastatin Hypertensioncontinue triamterene HCTZ, metoprolol, diltiazem osteopeniacalcium and vitamin D supplement Dispo: discharge to home today with cardiology follow up Admission HPI Per Admitting Provider Patient is a 74-year-old female with a past medical history of A-fib on Xarelto s/p maze 2027, mitral valve replacement 1991, hypertension, hyperlipidemia, GERD, osteopenia. She presented to the ED due to 12 hours of intermittent stabbing left sided chest pain with episodes lasting approximately a minute. She also endorses dyspnea on exertion when going up her stairs this evening. She is being admitted for chest pain workup including troponin trend and echocardiogram. She is hypokalemic on admission with a potassium of 3.6. Patient seen at bedside with her present. She felt like the chest pain may have been due to indigestion that she has a history of. She denies any past history of WA or stent placement. She does have a family history of WA; her father had an WA at 48 and 68. She does not have any history of diabetes or previous VTE. She denies pleuritic chest pain, no calf tenderness; however does endorse bilateral lower extremity edema but feels it it is due to her sitting most of the day today. Regarding her low potassium, patient stated she had norovirus last week and had vomiting and diarrhea for approximately 24 hours along with several days of weakness. She typically has low potassium on blood work. She is on hydrochlorothiazide. She denies fever, chills, nausea, vomi ting, dizziness, lightheadedness, abdominal pain. She does not use nicotine products, drink alcohol, or use illicit drugs. She took her home medications last evening. She wishes to be full code. Patient was undergoing treatment for ongoing sinus issues for most of May and completed a course of Augmentin, doxycycline, and eyedrops for pinkeye. The symptoms are now resolved. She does not require that eyedrops anymore. Discharge Exam General: NAD, VS as above Resp: normal respiratory effort, lungs clear to auscultation CV: bradycaric, irregular no murmur, Abd: normal bowel sounds, non tender, no hepatosplenomegaly Extremities: Moves all extremities, no edema Neuro: A&O x3, Skin: intact, no lesions noted Discharge Plan Discharge Items Patient Disposition: Home - Self-Care Reason For Visit: CHEST PAIN Discharge Diagnosis: Chest pain -likely musculoskeletal Condition on Discharge: Good Activity: Resume your previous activity Non-emergency contact: Primary Care Provider and Psychology Professor Call non-emergency contact if: you have any medication questions, your pain is not controlled, your pain is worsening and your temperature is above 101 Follow-up/Referrals: Murtaza Melo Jr, MD, [facility] [Physician] - (F/u in 1-2 weeks ) Kira Chisholm MD [Primary Care Provider] - (f/u in one week ) Diet: Heart Healthy Addtl Attending Provider Instructions: Ms. Keyes, You were hospitalized after episodes of chest pain. Thankfully this was not found to be from a cardiac cause. You were seen by cardiology who did not recommend any further cardiology workup. They did recommend that we could decrease some of your afib medications to see if that helps with your shortness of breath on exertion. You have elected to wait to do this until you talk to Dr. Melo, which I feel is reasonable. However, if you notice the shortness of breath on exertion you could decrease your cardizem to once a day and see how you feel before your follow up with Dr. Melo. There was also a finding of mitral stenosis on your echocardiogram - in combination with your afib, this puts your at higher risk of clots. While you are on Xarelto, a different blood thinning medication may be more beneficial such as warfarin. Recommend a sooner follow up appointment with Dr. Melo. I have sent a message to his office to get you scheduled, but if you do not here from them by Sunday, please give them a call. Your electrolyte levels were normal on the day of discharge. Activity: You can do normal everyday activities as your body allows. Take rest breaks if you feel tired. Do not overexert. Stop activity if you have pain, shortness of breath or feel dizzy. Follow-up appointments: Make an appointment with your primary care physician within one week of discharge. A copy of this summary will be sent to them. Every time you see your primary care physician, or any other doctor, bring your medication list, and a list of questions. CONTACT YOUR PRIMARY CARE PROVIDER if you experience any of the following: Shortness of breath or difficulty breathing Fevers or chills Feeling tired with normal activity or experiencing dizziness or fainting Difficulty following your treatment plan, or difficulty taking medications CALL 911 OR GO TO THE EMERGENCY DEPARTMENT if you experience any of the following: Severe abdominal pain or nausea/vomiting Severe chest pain, or chest pain that radiates (moves) to your jaw or arm Sudden, severe shortness of breath or difficulty breathing Thank you for allowing us to participate in your care. Adriana Rod PA-C Pending Studies at Discharge: No Stand-Alone Forms: [facility], Smoking Cessation Medications and DC Order Prescriptions: Continued rivaroxaban 20 mg tablet 20 mg PO QPM Qty: 90 3RF triamterene-hydrochlorothiazid 37.5-25 mg capsule 1 cap PO QAM Qty: 90 3RF diltiazem HCl 120 mg capsule,extended release 24 hr 120 mg PO BID 90 Days Qty: 180 3RF Rx Instructions: Take 1 capsule by mouth twice daily atenolol 25 mg tablet 25 mg PO DAILY Qty: 90 3RF atorvastatin 20 mg tablet 20 mg PO DAILY Qty: 90 3RF estradiol 0.01 % (0.1 mg/gram) cream 1 g vaginal .COMPLEX Qty: 42.5 1RF Rx Instructions: 1 g vaginal; 1gm PV daily for 14 days, then 1/2gm PV twice weekly calcium carbonate-vitamin D3 600 mg-5 mcg (200 unit) Tablet 1 tab PO QAM Discharge Orders: Discharge Order (Routine); Ordered 07/13/24 Ordered By: Adriana Rod Admission Data Admit Date/Time: 07/13/24 02:25 Attending Provider: Abby Snyder Admit Provider: Cristino Garcia Primary Care Provider: Kira Chisholm Other Providers: Cristino Garcia; Checo Ambrosio Other Interventions: Discharge Summary Assessment (RN) Last Done: 07/13/24 14:13 Hospital Stay Data Consultations 07/13/24 01:59 ED Decision to Admit Stat 07/13/24 09:18 Consult Cardiology Routine Pending Results Patient Have Any Pending Studies at Discharge: No Discharge Instructions Given to Patient (Per Discharging Provider) Ms. Keyes, Rickie were hospitalized after episodes of chest pain. Thankfully this was not found to be from a cardiac cause. You were seen by cardiology who did not recommend any further cardiology workup. They did recommend that we could decrease some of your afib medications to see if that helps with your shortness of breath on exertion. You have elected to wait to do this until you talk to Dr. Melo, which I feel is reasonable. However, if you notice the shortness of breath on exertion you could decrease your cardizem to once a day and see how you feel before your follow up with Dr. Melo. There was also a finding of mitral stenosis on your echocardiogram - in combination with your afib, this puts your at higher risk of clots. While you are on Xarelto, a different blood thinning medication may be more beneficial such as warfarin. Recommend a sooner follow up appointment with Dr. Melo. I have sent a message to his office to get you scheduled, but if you do not here from them by Sunday, please give them a call. Your electrolyte levels were normal on the day of discharge. Activity: You can do normal everyday activities as your body allows. Take rest breaks if you feel tired. Do not overexert. Stop activity if you have pain, shortness of breath or feel dizzy. Follow-up appointments: Make an appointment with your primary care physician within one week of discharge. A copy of this summary will be sent to them. Every time you see your primary care physician, or any other doctor, bring your medication list, and a list of questions. CONTACT YOUR PRIMARY CARE PROVIDER if you experience any of the following: Shortness of breath or difficulty breathing Fevers or chills Feeling tired with normal activity or experiencing dizziness or fainting Difficulty following your treatment plan, or difficulty taking medications CALL 911 OR GO TO THE EMERGENCY DEPARTMENT if you experience any of the following: Severe abdominal pain or nausea/vomiting Severe chest pain, or chest pain that radiates (moves) to your jaw or arm Sudden, severe shortness of breath or difficulty breathing Thank you for allowing us to participate in your care. Adriana Rod PA-C Supervising Physician Co-Signing Physician Notes PA Supervision Note: I did not personally see or examine the patient today, but I verified all lange points of KRYSTINA Rod's assessment and plan with the following exceptions/additions: None Total Time Total Time Spent Total Time Spent (In Minutes): Time spent day of discharge 40 minutes including direct patient care, medication reconciliation, documentation, review of labs and images, and coordination of care. Coding Level of Care Code None Diagnoses Chest pain R07.9 Hypokalemia E87.6 Paroxysmal atrial fibrillation I48.0 Atrial fibrillation type: paroxysmal
[2024-07-13 14:06] VITALS: O2SAT 95
[2024-07-13 14:15] VITALS: BP 152/69; PULSE 50; RESP 17
[2024-07-13] MEDS ORDERED: RIVAROXABAN 20 MG TAB PO SCH (16:30)
== END 2024-07-13 14:13 | disposition home or self-care (01) ==
LOC: SUATTDRO → ED 00:22 → EDINP 00:22 → SUATTDRO 02:25 → EDINP 03:59